=== PATIENT | male | born 1990 | race Native Hawaiian/Other Pacific Islander ===

== ENCOUNTER 2023-06-29 20:33 | Emergency (ER) | payer SELFPAY ==
[~2023-06-29] VITALS: Ht 170.2 cm; Wt 109.0 kg
[2023-06-29 20:57] VITALS: BP 150/90; PULSE 110; RESP 20; TEMP 97.5; O2SAT 95
== END 2023-06-29 21:30 | disposition home or self-care (01) ==
LOC: ER 20:34
DX: H10.213 Acute toxic conjunctivitis, bilateral (principal)
CPT/HCPCS: 99283

== ENCOUNTER 2024-11-17 12:19 | Emergency (ER) | payer MEDICAID ==
[~2024-11-17] VITALS: Ht 188 cm; Wt 125.9 kg
--- NOTE | 2024-11-17 12:50 | Physician Documentation ---
History of Present Illness ~ Chief Complaint: Abnormal Stools Stated Complaint: ABDOMINAL PAIN Time Seen by MD: 13:05 HPI 34-year-old male recently released from incarceration black stool that he states he has had for months but is experiencing an increase in epigastric abdominal pain. Patient denies any nausea vomiting. Patient does not endorse any syncopal episode or dizziness. Medication Reconciliation Allergies: Coded Allergies: No Known Allergies (Unverified , 11/17/24) Review of Systems ROS As stated above in the HPI, otherwise all systems are reviewed and negative. Physical Exam Vital Signs: Temperature: 97.9, Source: Temporal, Heart Rate: 78, Respiratory Rate: 16, BP: 145/79, Pulse Oximetry: 97, Weight: 125.900 Oxygen Flow Rate: 0 Physical Exam Reviewed vital signs and they are well within normal range. Const: Well built well nourished adult male not in acute cardiopulmonary distress Head: Atraumatic Eyes: Normal Conjunctiva, CAMRYN EOMI no pallor no jaundice ENT: Normal External Ears, Nose and Mouth. Moist mucous membranes Neck: Full range of motion. No meningismus Resp: Clear to auscultation bilaterally. Normal work of breathing Cardio: Regular rate and rhythm, no murmurs. Skin well perfused Abd: Soft, mild epigastric tenderness, non-distended. Normal bowel sounds. No rebound or guarding Rectal examination shows empty rectum and whatever on the examination finger was smear on the occult test card and positive for blood. There was no melanotic stool in the rectum. Skin: No petechiae or rashes. Warm and dry Back: No midline or flank tenderness Ext: No cyanosis, or edema Neuro: Awake and alert Psych: Normal Mood and Affect General Appearance: alert, WD/WN, no apparent distress Respiratory: no respiratory distress Gastrointestinal: bowels sounds present Gastrointestinal Mild epigastric pain during palpation Progress Results/Orders Results/Orders Completed Orders - OHSOUMYA Luciano MD Pantoprazole 40mg Iv (Protonix 40mg Iv) (11/17/24 13:30) Hemogram (11/17/24 15:49) Medications Received in ER Medications (Trade) Dose Ordered Sig/Alicia Route PRN Reason Start Time Stop Time Status Last Admin Dose Admin (Protonix 40mg IV) 40 mg DAILY ONCE IV 11/17/24 13:30 11/17/24 13:31 DC 11/17/24 14:47 40 MG Vital Signs 11/17/24 11/17/24 11/17/24 11/17/24 12:37 13:25 15:34 15:35 Temp 97.9 Pulse 78 62 73 Resp 16 16 18 B/P (MAP) 145/79 103/61 (75) 117/79 (92) Pulse Ox 97 96 96 O2 Flow Rate 0 0 0 Laboratory Tests Test 11/17/24 12:55 11/17/24 13:18 11/17/24 16:08 White Blood Count 7.0 6.7 Red Blood Count 5.14 4.87 Hemoglobin 14.5 14.0 Hematocrit 43.8 41.6 L Mean Corpuscular Volume 85.2 85.5 Mean Corpuscular Hemoglobin 28.1 28.7 Mean Corpuscular Hemoglobin Concent 33.0 33.5 Red Cell Distribution Width 13.5 13.6 Platelet Count 272 265 Mean Platelet Volume 9.0 8.9 Neutrophils (%) (Auto) 53.7 Lymphocytes (%) (Auto) 37.3 Monocytes (%) (Auto) 6.6 Eosinophils (%) (Auto) 1.9 Basophils (%) (Auto) 0.5 Neutrophils # (Auto) 3.7 Lymphocytes # (Auto) 2.6 Monocytes # (Auto) 0.5 Eosinophils # (Auto) 0.1 Basophils # (Auto) 0.0 CBC Comment Sodium Level 138 Potassium Level 4.3 Chloride Level 103 Carbon Dioxide Level 29.9 Anion Gap 5 L Blood Urea Nitrogen 16 Creatinine 1.27 H Estimated GFR/1.73 m2 65 BUN/Creatinine Ratio 12.6 Glucose Level 108 H Calcium Level 8.6 Total Bilirubin 0.5 Aspartate Amino Transf (AST/SGOT) 12 Alanine Aminotransferase (ALT/SGPT) 26 Alkaline Phosphatase 97 Total Protein 7.0 Albumin 3.6 Globulin 3.4 Albumin/Globulin Ratio 1.1 Amylase Level 46 Lipase 19 Chemistry Comments Urine Specimen Description Cln catch midstream Urine Color Yellow Urine Clarity Clear Urine pH 5.5 Urine Specific [place] >=1.030 Urine Protein Negative Urine Glucose (UA) Negative Urine Ketones Negative Urine Occult Blood Negative Urine Nitrite Negative Urine Bilirubin Negative Urine Urobilinogen 0.2 Urine Leukocyte Esterase Negative Urine Culture Indicated Not ind Volume Urine Centrifuged 10 ml Urine Comment Hematology Comments Medical Decision Making Findings During the physical examination, the findings suggestive of acute life- threatening condition such as JVD, tracheal deviation, acidotic breathing, noisy stridorous breath sounds, pulses paradoxus, muffled heart sounds, unequal breath sounds, abdominal rigidity and rebound tenderness, focal neurological deficits, cool clammy skin, severe hypotension, severe tachycardia or bradycardia are absent. Patient is hemodynamically stable and clinically does not look anemic. CBC showed WBC 7 H and H14.5 and 43.8 and platelets 272. Sodium 138 potassium 4 .3 chloride 103 bicarb 29.9 BUN 16 creatinine 1.27 and glucose 108. UA is clear. Repeat H&H shows 14 and 41.6. The patient is hemodynamically stable and his hemoglobin is more or less stable I will discharge him with instruction to follow with primary care provider and also put him on PPI. Return instruction provided. DISCLAIMER Inadvertent spelling and grammatical errors,inadvertent industrial electrician journeyman errors,syntax errors, grammatical errors, and spelling errors are likely due to EMR/dictation software use and do not reflect on the overall quality of patient care. Note that the electronic time recorded on this note does not necessarily reflect the actual time of the patient encounter. Departure Disposition: 01 HOME / SELF CARE / HOMELESS Impression: Primary Impression: Acute gastritis Additional Impression: Occult blood positive stool Condition: Stable Discharge Instructions: Gastritis, Adult, [id number] Additional Instructions: Thank you for coming to our Emergency Department today. Please talk to a primary care provider as soon as possible. Return to the emergency room CL[facility] should you have more sticky black stool continuously and feeling weaker and feeling like going to pass out. Please ask your nurse or provider if you have questions about your care today and do not leave until all your questions have been answered. Please use any medications given as directed and follow-up with your doctor (or the doctor you were referred to) in the next 1-3 days. Your primary care doctor can help to coordinate outpatient specialty care (GI specialist consultation and endoscopic examination) and provide authorization for specialty referral as needed. If you do not have a primary care doctor you may follow up at a community hospital. You may also use motrin and tylenol as needed for fever and/or pain unless instructed otherwise by your provider or nurse. Indications for more urgent follow-up have been discussed, but you may return to the Emergency Department at ANY time for any worrisome or worsening symptoms. Referrals: NO PRIMARY CARE PROVIDER (PCP) Prescriptions Rabeprazole Sodium (Rabeprazole Sodium) 20 Mg Tablet.dr 1 TAB PO DAILY for 30 Days, #30 TAB 0 Refills Prov: SOUMYA VALENCIA MD 11/17/24 Signature Scribe Signature: None Attestation: My dictation YOLANDA PARRA NP Nov 17, 2024 12:50 SOUMYA VALENCIA MD Nov 17, 2024 16:53
[2024-11-17 13:15] LABS: BASOPHILS % (AUTO) 0.5 % (0-1); EOSINOPHILS # (AUTO) 0.1 X10'3 (0-0.9); EOSINOPHILS % (AUTO) 1.9 % (0-6); HEMATOCRIT 43.8 % (42.0-52.0); HEMOGLOBIN 14.5 g/dl (14.0-17.9); LYMPHOCYTES # (AUTO) 2.6 X10'3 (1.1-4.8); LYMPHOCYTES % (AUTO) 37.3 % (21-51); MEAN CORPUSCULAR HEMOGLOBIN 28.1 PG (27.0-31.0); MEAN CORPUSCULAR VOLUME 85.2 FL (78-98); MONOCYTES # (AUTO) 0.5 X10'3 (0-0.9); MONOCYTES % (AUTO) 6.6 % (2-12); NEUTROPHILS # (AUTO) 3.7 X10'3 (1.8-7.7); NEUTROPHILS % (AUTO) 53.7 % (42-75); PLATELET COUNT 272 X10'3 (140-440); RED BLOOD COUNT 5.14 X10'6 (4.70-6.10); RED CELL DISTRIBUTION WIDTH 13.5 % (11.5-14.5)
[2024-11-17 13:23] LABS: ALANINE AMINOTRANSFERASE 26 U/L (12-78); ALBUMIN 3.6 G/DL (3.4-5.0); ALBUMIN/GLOBULIN RATIO 1.1 (1.1-1.5); ALKALINE PHOSPHATASE 97 IU/L (46-116); AMYLASE 46 U/L (25-115); ASPARTATE AMINO TRANSFERASE 12 U/L (10-37); BILIRUBIN,TOTAL 0.5 MG/DL (0.1-1.0); BLOOD UREA NITROGEN 16 MG/DL (7-18); BUN/CREATININE RATIO 12.6 (10.0-20.0); CALCIUM 8.6 MG/DL (8.5-10.1); CHLORIDE 103 MMOL/L (99-107); CREATININE 1.27 MG/DL (0.60-1.10); GLUCOSE 108 MG/DL (70-104); LIPASE 19 U/L (16-77); POTASSIUM 4.3 MMOL/L (3.5-5.1); TOTAL CARBON DIOXIDE 29.9 MMOL/L (24-32); eCRCL 94 ML/MIN; eGFR 65 ML/MIN
[2024-11-17 13:26] LABS: ANION GAP 5 (8-16); SODIUM 138 MMOL/L (135-145)
[2024-11-17 13:38] LABS: BILIRUBIN,URINE NEGATIVE (Neg); CLARITY,URINE CLEAR (Clear); COLOR,URINE YELLOW (Yellow); GLUCOSE, URINE NEGATIVE (Neg); KETONES,URINE NEGATIVE (Neg); LEUKOCYTE ESTERASE ,URINE NEGATIVE (Neg); NITRITES, URINE NEGATIVE (Neg); OCCULT BLOOD,URINE NEGATIVE (Neg); PH,URINE 5.5 (4.8-8.0); PROTEIN,URINE NEGATIVE (Neg); UROBILINOGEN,URINE 0.2 E.U/dL (0.2-1.0)
[2024-11-17 13:39] LABS: UA COLLECTION TYPE CLN CATCH MIDSTREAM
[2024-11-17] MEDS: pantoprazole 40 MG vial IV ONE (14:47)
[2024-11-17 16:19] LABS: HEMATOCRIT 41.6 % (42.0-52.0); MEAN CORPUSCULAR HEMOGLOBIN 28.7 PG (27.0-31.0); MEAN CORPUSCULAR HGB CONC 33.5 g/dL (33.0-36.5); MEAN CORPUSCULAR VOLUME 85.5 FL (78-98); MEAN PLATELET VOLUME 8.9 FL (7.4-10.4); PLATELET COUNT 265 X10'3 (140-440); RED BLOOD COUNT 4.87 X10'6 (4.70-6.10); RED CELL DISTRIBUTION WIDTH 13.6 % (11.5-14.5); WHITE BLOOD COUNT 6.7 X10'3 (4.5-11.0)
[2024-11-17] MEDS ORDERED: RABE20TA32 PO (17:00)
[2024-11-17 17:09] LABS: OCCULT BLOOD STOOL POSITIVE (Neg)
[2024-11-17 17:16] VITALS: BP 131/62; PULSE 74; RESP 16; TEMP 97.9; O2SAT 94
[2024-11-17 18:07] LABS: OCCULT BLOOD STOOL POSITIVE (Neg)
== END 2024-11-17 17:22 | disposition home or self-care (01) ==
LOC: ER 12:20
DX: K29.00 Acute gastritis without bleeding (principal); K92.1 Melena
CPT/HCPCS: 36415; 80053; 81003; 82150; 82272; 83690; 85025; 85027; 96374; 99283; J2470